=== PATIENT | male | born 1970 | race Caucasian/White ===

== ENCOUNTER 2017-09-06 11:21 | Emergency (ER) | payer BC ==
[~2017-09-06] VITALS: Ht 172.7 cm; Wt 91.2 kg
[2017-09-06 11:27] VITALS: Ht 172.7 cm; Wt 91.2 kg
[2017-09-06] MEDS ORDERED: LAMO100T16 PO (11:53)
[2017-09-06] MEDS ORDERED: LEVO50TA6 PO (11:53)
[2017-09-06] MEDS ORDERED: LISI-461 PO (11:53)
[2017-09-06 11:57] VITALS: O2SAT 98
[2017-09-06 11:57] LABS: BASO % 0.1 %; BASO ABS # 0.01 K/uL (0-0.2); EOS % 0.1 %; EOS ABS # 0.01 K/uL (0-0.5); HEMATOCRIT 32.3 % (42-52); HEMOGLOBIN 11.1 g/dL (14.0-18.0); IG# 0.02 K/uL (0.00-0.02); LYMPH % 19.5 %; LYMPH ABS # 2.11 K/uL (1.2-3.4); MEAN CELL VOLUME 83.7 fL (80-100); MEAN CORPUSCULAR HEMOGLOBIN 28.8 pg (25-34); MEAN CORPUSCULAR HGB CONC 34.4 g/dl (32-36); MEAN PLATELET VOLUME 9.7 fL (7.4-10.4); MONO % 11.5 %; MONO ABS # 1.25 K/uL (0.11-0.59); NEUT % 68.6 %; NEUT ABS # 7.43 K/uL (1.4-6.5); PLATELET COUNT 361 K/uL (130-400); RED CELL DISTRIBUTION WIDTH CV 15.4 % (11.5-14.5); RED CELL DISTRIBUTION WIDTH SD 47.1 fL (36.4-46.3); WHITE BLOOD COUNT 10.83 K/uL (4.8-10.8)
[2017-09-06 12:08] LABS: PTT PATIENT 29.9 SECONDS (21.0-31.0)
--- NOTE | 2017-09-06 12:11 | DIAGNOSTIC IMAGING REPORT ---
CHEST ONE VIEW PORTABLE CLINICAL HISTORY: Respiratory distress COMPARISON STUDY: No previous studies for comparison. FINDINGS: The heart is borderline enlarged. There is small left pleural effusion. There are left basilar opacities, atelectatic versus inflammatory. The right lung is generally clear. There is no overt failure.[ IMPRESSION: 1. Small left pleural effusion 2. Mild left basilar airspace opacities, atelectatic versus infectious/inflammatory Electronically signed by: Justo Penaloza M.D. 09/06/2017 12:09 PM Dictated Date/Time: 09/06/2017 12:09 PM
--- NOTE | 2017-09-06 12:15 | EMERGENCY ROOM VISIT NOTE ---
History Report prepared by Bob: Luis Reyes Under the Supervision of: Dr. Jamel Adams D.O. First contact with patient: 11:35 Chief Complaint: CHEST PAIN Stated Complaint: SHARP PAIN IN MIDDLE MY CHEST History of Present Illness The patient is a 47 year old male who presents to the Emergency Room with complaints of sudden onset chest pain starting around 0630 this morning while driving which he describes as a sharp pain. The patient states that the pain is worse with breathing, and nothing makes it any better. The patient denies any leg pain or swelling. He notes that a couple of months ago he had chest pain and numbness in his body, though they could not find anything. He states that he takes medications for his MS every day, and he has hypertension. He has no surgical history. The patient denies any history of blood clots in his legs or lungs. He states that he does not smoke, and he drinks alcohol occasionally. Source of History: patient Onset: 0630 Position: chest Quality: sharp Timing: other (sudden onset) Modifying Factors (Worsening): breathing Modifying Factors (Relieving): other (nothing) Review of Systems See HPI for pertinent positives & negatives. A total of 10 systems reviewed and were otherwise negative. Past Medical & Surgical Medical Problems: (1) HTN (hypertension) (2) Multiple sclerosis Social History Smoking Status: Never Smoker Marital Status: Housing Status: lives with family Occupation Status: employed Current/Historical Medications Scheduled Albuterol Hfa (Ventolin Hfa), 1 PUFF INH Q4 Lamotrigine (Lamictal), 250 MG PO BID Levofloxacin (Levaquin), 750 MG PO DAILY Levothyroxine Sodium (Levothyroxine Sodium), 50 MCG PO DAILY Lisinopril (Zestril), 10 MG PO DAILY Scheduled PRN Oxycodone Immediate Rel Tab (Roxicodone Ir), 1-2 TAB PO Q4H PRN for Severe Pain Allergies Coded Allergies: No Known Allergies (Unverified , 09/06/17) Physical Exam Vital Signs Date Time Temp Pulse Resp B/P (MAP) Pulse Ox O2 Delivery O2 Flow Rate FiO2 09/06/17 15:30 95 20 123/75 95 09/06/17 14:48 96 18 123/75 97 Room Air 09/06/17 13:49 94 18 131/73 100 Room Air 09/06/17 12:21 95 18 116/76 97 Room Air 09/06/17 11:57 98 Room Air 09/06/17 11:51 98 Room Air 09/06/17 11:47 100 09/06/17 11:27 93 18 126/74 100 Room Air Physical Exam GENERAL: Patient is awake, alert, somewhat anxious appearing and uncomfortable. EYES: The conjunctivae are clear. The pupils are round and reactive. EARS, NOSE, MOUTH AND THROAT: The nose is without any evidence of any deformity. Mucous membranes are moist tongue is midline NECK: The neck is nontender and supple. RESPIRATORY: Normal respiratory effort is noted there is no evidence of wheezing rhonchi or rales CARDIOVASCULAR: Regular rate and rhythm noted there no murmurs rubs or gallops normal S1 normal S2 GASTROINTESTINAL: The abdomen is soft. Bowel sounds are present in all quadrants. Abdomen is nontender MUSCULOSKELETAL/EXTREMITIES: There is reproducible pain with inspiration as well as palpation over the left side.of the chest. There is no evidence of gross deformity full range of motion is noted in the hips and shoulders SKIN: There is no obvious evidence of any rash. There are no petechiae, pallor or cyanosis noted. NEUROLOGIC: Patient is awake alert and oriented x3 Medical Decision & Procedures ER Provider Diagnostic Interpretation: Radiology results as stated below per my review and radiologist interpretation: CHEST ONE VIEW PORTABLE CLINICAL HISTORY: Respiratory distress COMPARISON STUDY: No previous studies for comparison. FINDINGS: The heart is borderline enlarged. There is small left pleural effusion. There are left basilar opacities, atelectatic versus inflammatory. The right lung is generally clear. There is no overt failure.[ IMPRESSION: 1. Small left pleural effusion 2. Mild left basilar airspace opacities, atelectatic versus infectious/inflammatory Electronically signed by: Justo Penaloza M.D. 09/06/2017 12:09 PM Dictated Date/Time: 09/06/2017 12:[address] ANGIOGRAM OF THE CHEST CLINICAL HISTORY: Atypical chest pain. RESPIRATORY DISTRESS COMPARISON STUDY: Chest x-ray dated 09/06/2017 TECHNIQUE: Following the IV administration of 103 mL of Optiray-320, CT angiogram of the thorax was performed from the thoracic inlet to the lung bases utilizing the pulmonary embolus protocol. Images are reviewed in the axial, sagittal, and coronal planes. IV contrast was administered without complication. MIP imaging was performed. A dose lowering technique was utilized adhering to the principles of ALARA. CT DOSE: 341.28 mGy.cm FINDINGS: There are borderline enlarged prevascular lymph nodes. There was no evidence of thoracic aortic dilatation. There were no pulmonary artery filling defects to indicate acute pulmonary embolism. Evaluation of the lower lobe pulmonary artery branches is slightly limited due to motion artifact. There is a small left pleural effusion There are left lower lobe airspace opacities, atelectatic versus infectious/inflammatory IMPRESSION: 1. No pulmonary emboli identified. Evaluation of lower lobe subsegmental branches is limited due to respiratory motion artifact 2. Small left pleural effusion. Left lower lobe airspace opacities, atelectatic versus infectious/inflammatory 3. Borderline enlarged mediastinal lymph nodes Electronically signed by: Justo Penaloza M.D. 09/06/2017 1:40 PM Dictated Date/Time: 09/06/2017 1:36 PM Laboratory Results 09/06/17 11:44 Red Blood Count 3.86, Mean Corpuscular Volume 83.7, Mean Corpuscular Hemoglobin 28.8, Mean Corpuscular Hemoglobin Concent 34.4, Mean Platelet Volume 9.7, Neutrophils (%) (Auto) 68.6, Lymphocytes (%) (Auto) 19.5, Monocytes (%) (Auto) 11.5, Eosinophils (%) (Auto) 0.1, Basophils (%) (Auto) 0.1, Neutrophils # (Auto ) 7.43, Lymphocytes # (Auto) 2.11, Monocytes # (Auto) 1.25, Eosinophils # (Auto ) 0.01, Basophils # (Auto) 0.01 09/06/17 11:44 Test 09/06/17 11:44 09/06/17 11:55 White Blood Count 10.83 K/uL (4.8-10.8) Red Blood Count 3.86 M/uL (4.7-6.1) Hemoglobin 11.1 g/dL (14.0-18.0) Hematocrit 32.3 % (42-52) Mean Corpuscular Volume 83.7 fL (80-100) Mean Corpuscular Hemoglobin 28.8 pg (25-34) Mean Corpuscular Hemoglobin Concent 34.4 g/dl (32-36) Platelet Count 361 K/uL (130-400) Mean Platelet Volume 9.7 fL (7.4-10.4) Neutrophils (%) (Auto) 68.6 % Lymphocytes (%) (Auto) 19.5 % Monocytes (%) (Auto) 11.5 % Eosinophils (%) (Auto) 0.1 % Basophils (%) (Auto) 0.1 % Neutrophils # (Auto) 7.43 K/uL (1.4-6.5) Lymphocytes # (Auto) 2.11 K/uL (1.2-3.4) Monocytes # (Auto) 1.25 K/uL (0.11-0.59) Eosinophils # (Auto) 0.01 K/uL (0-0.5) Basophils # (Auto) 0.01 K/uL (0-0.2) RDW Standard Deviation 47.1 fL (36.4-46.3) RDW Coefficient of Variation 15.4 % (11.5-14.5) Immature Granulocyte % (Auto) 0.2 % Immature Granulocyte # (Auto) 0.02 K/uL (0.00-0.02) Prothrombin Time 10.0 SECONDS (9.0-12.0) Prothromb Time International Ratio 1.0 (0.9-1.1) Activated Partial Thromboplast Time 29.9 SECONDS (21.0-31.0) Partial Thromboplastin Ratio 1.2 Anion Gap 7.0 mmol/L (3-11) Est Creatinine Clear Calc Drug Dose 103.2 ml/min Estimated GFR () 107.3 Estimated GFR (Non- 92.6 BUN/Creatinine Ratio 15.1 (10-20) Calcium Level 9.2 mg/dl (8.5-10.1) Total Bilirubin 0.8 mg/dl (0.2-1) Aspartate Amino Transf (AST/SGOT) 13 U/L (15-37) Alanine Aminotransferase (ALT/SGPT) 17 U/L (12-78) Alkaline Phosphatase 89 U/L (45-117) Total Creatine Kinase 46 U/L (39-308) Creatine Kinase MB < 0.5 ng/ml (0.5-3.6) Creatine Kinase MB Ratio (0-3.0) Troponin I < 0.015 ng/ml (0-0.045) Total Protein 7.6 gm/dl (6.4-8.2) Albumin 3.3 gm/dl (3.4-5.0) Globulin 4.3 gm/dl (2.5-4.0) Albumin/Globulin Ratio 0.8 (0.9-2) Bedside D-Dimer > 450 ng/mlFEU (0-450) Laboratory results per my review. Medications Administered Medications (Trade) Dose Ordered Sig/Wilbert Route Start Time Stop Time Status Last Admin Dose Admin Levofloxacin (Levaquin Tab) 750 mg NOW STAT PO 09/06/17 14:40 09/06/17 14:42 DC 09/06/17 15:18 750 MG ECG Indication: chest pain Rate (beats per minute): 92 Rhythm: normal sinus Findings: no ectopy, other (No acute St segment abnormality. Inferior T wave abnormality) ED Course 1135: The patient was evaluated in room C8. A complete history and physical examination were performed. 1440: Levofloxacin 750mg PO 1442: Upon reevaluation, the patient is doing well. I discussed the results and treatment plan with him. He verbalized agreement of the treatment plan. He was discharged home. Medical Decision Differential diagnosis: Etiologies such as cardiac ischemia, aortic dissection, pulmonary embolism, pneumonia, pneumothorax, musculoskeletal, infections, pericarditis, myocarditis , esophageal rupture, gastrointestinal, as well as others were entertained. Nursing notes reviewed. The patient is a 47-year-old male who presented to the emergency department for an evaluation of pleuritic chest pain. The patient was treated with IV antibiotics for presumed pneumonia that was noted on chest CT. I discussed the patient's laboratory and radiographic studies with him. D-dimer was obtained and was elevated. Because of this CT the chest was obtained. I discussed the patient's laboratory radiographic studies with him. His chest pain does not appear to be cardiac in nature. His initial biomarkers were negative. He was encouraged to continue all medications as prescribed and rest. I also encouraged him to continue to follow-up with his primary care physician. He had a similar episode and was seen at another ER recently and that time it was recommended that he follow-up with his primary care physician for an echocardiogram and I do agree with this plan. Otherwise she was encouraged to return to the emergency Department immediately if symptoms change worsen or the need arises. Medication Reconcilliation Current Medication List: was personally reviewed by me Blood Pressure Screening Patient's blood pressure: Normal blood pressure Impression Primary Impression: Precordial chest pain Additional Impressions: Pleurisy Pneumonia Scribe Attestation The scribe's documentation has been prepared under my direction and personally reviewed by me in its entirety. I confirm that the note above accurately reflects all work, treatment, procedures, and medical decision making performed by me. Departure Information Dispostion Home / Self-Care Prescriptions Oxycodone Immediate Rel Tab (ROXICODONE IR) 5 Mg Tab 1-2 TAB PO Q4H Y for Severe Pain, #24 TAB Prov: Jamel Adams, DO 09/06/17 Levofloxacin (Levaquin) 750 Mg Tab 750 MG PO DAILY, #7 TAB Prov: Jamel Adams, DO 09/06/17 Albuterol Hfa (VENTOLIN HFA) 200 Puffs/63623 Mcg Aers 1 PUFF INH Q4, #1 INHALER Prov: Jamel Adams, DO 09/06/17 Forms Call Back Authorization, HOME CARE DOCUMENTATION FORM, IMPORTANT VISIT INFORMATION, Work Instructions Patient Instructions My [facility], Pleurisy, Pneumonia Additional Instructions Continue all medications as prescribed. Rest and avoid any strenuous activity. Follow-up with your family doctor soon as possible. You may require a referral for a follow-up appointment with your neurologist as well. Return to the emergency apartment immediately if symptoms change worsen or the need arises. Problem Qualifiers Additional Impressions: Pneumonia Pneumonia type: due to unspecified organism Laterality: unspecified laterality Lung location: unspecified part of lung Qualified Codes: J18.9 - Pneumonia, unspecified organism
[2017-09-06 12:16] LABS: ALBUMIN 3.3 gm/dl (3.4-5.0); ALT/SGPT 17 U/L (12-78); BLOOD UREA NITROGEN 15 mg/dl (7-18); CALCIUM 9.2 mg/dl (8.5-10.1); CARBON DIOXIDE 26 mmol/L (21-32); CREATININE 0.97 mg/dl (0.60-1.40); GLUCOSE 100 mg/dl (70-99); POTASSIUM 3.6 mmol/L (3.5-5.1); SODIUM 131 mmol/L (136-145)
[2017-09-06 12:21] LABS: ALKALINE PHOSPHATASE 89 U/L (45-117); AST/SGOT 13 U/L (15-37); CKMB < 0.5 ng/ml (0.5-3.6); TOTAL PROTEIN 7.6 gm/dl (6.4-8.2)
[2017-09-06] MEDS ORDERED: OPTIRAY 320 IV PRN (13:15)
--- NOTE | 2017-09-06 13:41 | DIAGNOSTIC IMAGING REPORT ---
CT ANGIOGRAM OF THE CHEST CLINICAL HISTORY: Atypical chest pain. RESPIRATORY DISTRESS COMPARISON STUDY: Chest x-ray dated 09/06/2017 TECHNIQUE: Following the IV administration of 103 mL of Optiray-320, CT angiogram of the thorax was performed from the thoracic inlet to the lung bases utilizing the pulmonary embolus protocol. Images are reviewed in the axial, sagittal, and coronal planes. IV contrast was administered without complication. MIP imaging was performed. A dose lowering technique was utilized adhering to the principles of ALARA. CT DOSE: 341.28 mGy.cm FINDINGS: There are borderline enlarged prevascular lymph nodes. There was no evidence of thoracic aortic dilatation. There were no pulmonary artery filling defects to indicate acute pulmonary embolism. Evaluation of the lower lobe pulmonary artery branches is slightly limited due to motion artifact. There is a small left pleural effusion There are left lower lobe airspace opacities, atelectatic versus infectious/inflammatory IMPRESSION: 1. No pulmonary emboli identified. Evaluation of lower lobe subsegmental branches is limited due to respiratory motion artifact 2. Small left pleural effusion. Left lower lobe airspace opacities, atelectatic versus infectious/inflammatory 3. Borderline enlarged mediastinal lymph nodes Electronically signed by: Justo Penaloza M.D. 09/06/2017 1:40 PM Dictated Date/Time: 09/06/2017 1:36 PM
[2017-09-06] MEDS ORDERED: LEVOFLOXACIN 250 MG TAB PO STA (14:40)
[2017-09-06] MEDS ORDERED: LEVO1TAB35 PO (14:44)
[2017-09-06] MEDS ORDERED: OXYC1TAB3 PO (14:44)
[2017-09-06] MEDS ORDERED: VNTHFA/IN INH (14:44)
[2017-09-06 15:30] VITALS: BP 123/75; PULSE 95; O2SAT 95
== END 2017-09-06 15:32 | disposition home or self-care (01) ==
LOC: C.EDB 11:25 → C.EDC 15:32
DX: R07.2 Precordial pain (principal); R09.1 Pleurisy; J18.9 Pneumonia, unspecified organism; G35 Multiple sclerosis; I10 Essential (primary) hypertension